=== PATIENT | male | born 1945 | race Caucasian/White ===

== ENCOUNTER 2020-10-20 23:44 | Emergency (ER) | payer MEDICARE ==
[2020-10-21 00:03] LABS: HEMOGLOBIN 14.2 gm/dl (14.0-17.5); RED BLOOD COUNT 4.89 M/UL (4.20-5.50); WHITE BLOOD COUNT 5.7 K/UL (4.5-11.0)
[2020-10-21 00:38] LABS: BUN/CREATININE RATIO 34 (0-10)
== END 2020-10-21 02:15 | disposition short-term general hospital (02) ==
LOC: ER1 23:44
PROVIDERS: Emergency Medicine
DX: I62.02 Nontraumatic subacute subdural hemorrhage (principal); G83.14 Monoplegia of lower limb affecting left nondominant side; G83.13 Monoplegia of lower limb affecting right nondominant side; I10 Essential (primary) hypertension; R29.700 NIHSS score 0; Z91.81 History of falling; Z20.822 Contact with and (suspected) exposure to COVID-19
CPT/HCPCS: 70450; 71045; 80053; 82550; 82553; 82962; 83735; 83874; 84100; 84439; 84443; 84484; 85025; 85610; 85730; 93005; 99285; U0002